=== PATIENT | male | born 1945 | race Caucasian/White ===

== ENCOUNTER 2018-09-08 20:45 | Outpatient (REF) | payer OTHER, SELFPAY ==
[2018-09-08 22:15] LABS: Abs Immature Grans 0.05 k/cumm (0.0-0.09); Absolute Basophil Count 0.05 k/cumm (0.0-0.2); Absolute Eosinophil Count 0.18 k/cumm (0.0-0.7); Absolute Lymphocyte Count 1.16 k/cumm (1.2-3.4); Absolute Monocyte Count 0.93 k/cumm (0.11-0.7); Absolute Neutrophil Count 5.03 k/cumm (1.2-6.7); Basophils % 0.7; Eosinophils % 2.4; HCT 42.5 % (40.0-50.0); Immature Grans % 0.7; Lymphocytes % 15.7; Mean Corp. HGB Concentration 32.9 g/dL (32.0-36.0); Mean Corpuscular Hemoglobin 30.4 pg (27.0-33.0); Mean Corpuscular Volume 92.4 fL (80-95); Mean Platelet Volume 10.5 fL (8.0-11.0); Monocytes % 12.6; Neutrophils % 67.9; Platelet Count 299 x1000/uL (130-400); RBC Distribution Width 12.9 % (11.8-14.1)
[2018-09-08 22:30] LABS: BUN 15 mg/dL (7-18); CREATININE 1.01 mg/dL (0.70-1.30)
== END 2018-09-08 21:05 ==
LOC: LBN 20:45
PROVIDERS: PCP Student in an Organized Health Care Education/Training Program; Visit Provider Internal Medicine Infectious Disease
DX: J47.0 Bronchiectasis with acute lower respiratory infection (principal)
CPT/HCPCS: 84520; 82565; 85025

== ENCOUNTER 2018-09-19 21:15 | Outpatient (REF) | payer OTHER, SELFPAY ==
[2018-09-19 22:02] LABS: Abs Immature Grans 0.02 k/cumm (0.0-0.09); Absolute Basophil Count 0.02 k/cumm (0.0-0.2); Absolute Eosinophil Count 0.25 k/cumm (0.0-0.7); Absolute Lymphocyte Count 1.12 k/cumm (1.2-3.4); Absolute Neutrophil Count 6.83 k/cumm (1.2-6.7); Basophils % 0.2; Eosinophils % 2.7; HCT 41.3 % (40.0-50.0); HGB 13.7 g/dL (13.5-17.5); Immature Grans % 0.2; Lymphocytes % 12.3; Mean Corp. HGB Concentration 33.2 g/dL (32.0-36.0); Mean Corpuscular Hemoglobin 30.4 pg (27.0-33.0); Mean Corpuscular Volume 91.8 fL (80-95); Mean Platelet Volume 10.6 fL (8.0-11.0); Monocytes % 9.8; Neutrophils % 74.8; Platelet Count 286 x1000/uL (130-400); RBC Distribution Width 12.5 % (11.8-14.1); White Blood Cell Count 9.14 k/cumm (4.4-10.8)
[2018-09-19 22:19] LABS: Anion Gap 7.8 mmol/L (3-11); BUN 15 mg/dL (7-18); CO2 29.2 mmol/L (21.0-32.0); Calcium 9.3 mg/dL (8.5-10.1); Chloride 101 mmol/L (98-107); Glucose 95 mg/dL (70-100); Potassium 5.7 mmol/L (3.5-5.1); Sodium 138 mmol/L (136-145)
[2018-09-22 16:34] LABS: Amikacin, Trough <0.8 mcg/mL (<8.0)
== END 2018-09-19 21:35 ==
LOC: LBN 21:15
PROVIDERS: PCP Student in an Organized Health Care Education/Training Program; Visit Provider Internal Medicine Infectious Disease
DX: J47.0 Bronchiectasis with acute lower respiratory infection (principal); A31.0 Pulmonary mycobacterial infection
CPT/HCPCS: 80048; 80150; 85025

== ENCOUNTER 2018-09-22 11:20 | Outpatient (REF) | payer OTHER, SELFPAY ==
[2018-09-22 12:22] LABS: Abs Immature Grans 0.04 k/cumm (0.0-0.09); Absolute Basophil Count 0.04 k/cumm (0.0-0.2); Absolute Eosinophil Count 0.21 k/cumm (0.0-0.7); Absolute Lymphocyte Count 0.99 k/cumm (1.2-3.4); Absolute Monocyte Count 0.56 k/cumm (0.11-0.7); Absolute Neutrophil Count 5.89 k/cumm (1.2-6.7); Basophils % 0.5; Eosinophils % 2.7; HCT 40.8 % (40.0-50.0); HGB 13.7 g/dL (13.5-17.5); Immature Grans % 0.5; Lymphocytes % 12.8; Mean Corp. HGB Concentration 33.6 g/dL (32.0-36.0); Mean Corpuscular Hemoglobin 30.6 pg (27.0-33.0); Mean Corpuscular Volume 91.3 fL (80-95); Mean Platelet Volume 10.3 fL (8.0-11.0); Monocytes % 7.2; Neutrophils % 76.3; Platelet Count 251 x1000/uL (130-400); RBC 4.47 m/cumm (4.50-6.00); RBC Distribution Width 12.4 % (11.8-14.1); White Blood Cell Count 7.73 k/cumm (4.4-10.8)
[2018-09-22 12:42] LABS: BUN 7 mg/dL (7-18); CREATININE 1.14 mg/dL (0.70-1.30)
[2018-09-23 15:11] LABS: Amikacin, Trough <0.8 mcg/mL (<8.0)
== END 2018-09-22 11:40 ==
LOC: LBN 11:20
PROVIDERS: PCP Student in an Organized Health Care Education/Training Program; Visit Provider Internal Medicine Infectious Disease
DX: J47.0 Bronchiectasis with acute lower respiratory infection (principal); A31.0 Pulmonary mycobacterial infection
CPT/HCPCS: 80150; 84520; 82565; 85025

== ENCOUNTER 2018-09-29 10:09 | Outpatient (REF) | payer OTHER, SELFPAY ==
[2018-09-29 11:16] LABS: Abs Immature Grans 0.04 k/cumm (0.0-0.09); Absolute Basophil Count 0.05 k/cumm (0.0-0.2); Absolute Eosinophil Count 0.23 k/cumm (0.0-0.7); Absolute Lymphocyte Count 1.39 k/cumm (1.2-3.4); Absolute Monocyte Count 0.92 k/cumm (0.11-0.7); Basophils % 0.6; Eosinophils % 2.7; HCT 41.1 % (40.0-50.0); HGB 13.7 g/dL (13.5-17.5); Immature Grans % 0.5; Lymphocytes % 16.3; Mean Corp. HGB Concentration 33.3 g/dL (32.0-36.0); Mean Corpuscular Hemoglobin 30.2 pg (27.0-33.0); Mean Corpuscular Volume 90.7 fL (80-95); Monocytes % 10.8; Neutrophils % 69.1; Platelet Count 256 x1000/uL (130-400); RBC 4.53 m/cumm (4.50-6.00); RBC Distribution Width 12.4 % (11.8-14.1); White Blood Cell Count 8.53 k/cumm (4.4-10.8)
[2018-09-29 11:18] LABS: BUN 10 mg/dL (7-18); CREATININE 1.01 mg/dL (0.70-1.30)
== END 2018-09-29 10:29 ==
LOC: LBN 10:09
PROVIDERS: PCP Student in an Organized Health Care Education/Training Program; Visit Provider Internal Medicine Infectious Disease
DX: A31.0 Pulmonary mycobacterial infection (principal)
CPT/HCPCS: 84520; 82565; 85025

== ENCOUNTER 2018-10-06 22:23 | Outpatient (REF) | payer OTHER, SELFPAY ==
[2018-10-06 21:57] LABS: Abs Immature Grans 0.03 k/cumm (0.0-0.09); Absolute Basophil Count 0.04 k/cumm (0.0-0.2); Absolute Lymphocyte Count 1.68 k/cumm (1.2-3.4); Absolute Monocyte Count 0.93 k/cumm (0.11-0.7); Absolute Neutrophil Count 5.56 k/cumm (1.2-6.7); Basophils % 0.5; Eosinophils % 3.5; HCT 41.3 % (40.0-50.0); HGB 13.6 g/dL (13.5-17.5); Immature Grans % 0.4; Lymphocytes % 19.7; Mean Corp. HGB Concentration 32.9 g/dL (32.0-36.0); Mean Corpuscular Hemoglobin 29.8 pg (27.0-33.0); Mean Corpuscular Volume 90.4 fL (80-95); Mean Platelet Volume 10.4 fL (8.0-11.0); Monocytes % 10.9; Platelet Count 270 x1000/uL (130-400); RBC 4.57 m/cumm (4.50-6.00); RBC Distribution Width 12.3 % (11.8-14.1); White Blood Cell Count 8.54 k/cumm (4.4-10.8)
[2018-10-06 22:13] LABS: BUN 15 mg/dL (7-18); CREATININE 1.16 mg/dL (0.70-1.30)
== END 2018-10-06 22:43 ==
LOC: LBN 22:23
PROVIDERS: PCP Student in an Organized Health Care Education/Training Program; Visit Provider Internal Medicine Infectious Disease
DX: J47.0 Bronchiectasis with acute lower respiratory infection (principal); A31.0 Pulmonary mycobacterial infection
CPT/HCPCS: 84520; 82565; 85025

== ENCOUNTER 2018-10-20 22:26 | Outpatient (REF) | payer OTHER, SELFPAY ==
[2018-10-20 22:36] LABS: Abs Immature Grans 0.02 k/cumm (0.0-0.09); Absolute Basophil Count 0.04 k/cumm (0.0-0.2); Absolute Eosinophil Count 0.28 k/cumm (0.0-0.7); Absolute Lymphocyte Count 1.21 k/cumm (1.2-3.4); Absolute Neutrophil Count 5.99 k/cumm (1.2-6.7); Basophils % 0.5; Eosinophils % 3.4; HCT 41.5 % (40.0-50.0); HGB 13.6 g/dL (13.5-17.5); Immature Grans % 0.2; Lymphocytes % 14.5; Mean Corp. HGB Concentration 32.8 g/dL (32.0-36.0); Mean Corpuscular Hemoglobin 29.8 pg (27.0-33.0); Mean Platelet Volume 10.4 fL (8.0-11.0); Monocytes % 9.6; Neutrophils % 71.8; Platelet Count 280 x1000/uL (130-400); RBC 4.56 m/cumm (4.50-6.00); RBC Distribution Width 12.7 % (11.8-14.1); White Blood Cell Count 8.34 k/cumm (4.4-10.8)
[2018-10-20 23:14] LABS: BUN 13 mg/dL (7-18); CREATININE 1.32 mg/dL (0.70-1.30); Estimated GFR 53.17 (mL/min/1.73m2)
[2018-10-22 17:24] LABS: Amikacin, Peak 12.9 mcg/mL
== END 2018-10-20 22:46 ==
LOC: LBN 22:26
PROVIDERS: PCP Student in an Organized Health Care Education/Training Program; Visit Provider Internal Medicine Infectious Disease
DX: J47.0 Bronchiectasis with acute lower respiratory infection (principal); A36 Diphtheria
CPT/HCPCS: 80150; 84520; 82565; 85025

== ENCOUNTER 2018-10-27 13:32 | Outpatient (REF) | payer OTHER, SELFPAY ==
[2018-10-27 13:56] LABS: Abs Immature Grans 0.02 k/cumm (0.0-0.09); Absolute Basophil Count 0.02 k/cumm (0.0-0.2); Absolute Eosinophil Count 0.17 k/cumm (0.0-0.7); Absolute Lymphocyte Count 1.02 k/cumm (1.2-3.4); Absolute Neutrophil Count 5.19 k/cumm (1.2-6.7); Basophils % 0.3; Eosinophils % 2.5; HCT 39.6 % (40.0-50.0); HGB 13.2 g/dL (13.5-17.5); Immature Grans % 0.3; Mean Corp. HGB Concentration 33.3 g/dL (32.0-36.0); Mean Corpuscular Hemoglobin 30.1 pg (27.0-33.0); Mean Corpuscular Volume 90.4 fL (80-95); Mean Platelet Volume 10.3 fL (8.0-11.0); Monocytes % 5.9; Platelet Count 277 x1000/uL (130-400); RBC 4.38 m/cumm (4.50-6.00); RBC Distribution Width 12.6 % (11.8-14.1); White Blood Cell Count 6.82 k/cumm (4.4-10.8)
[2018-10-27 15:02] LABS: BUN 17 mg/dL (7-18); CREATININE 1.25 mg/dL (0.70-1.30); Estimated GFR 56.62 (mL/min/1.73m2)
== END 2018-10-27 13:52 ==
LOC: LBN 13:32
PROVIDERS: PCP Student in an Organized Health Care Education/Training Program; Visit Provider Internal Medicine Infectious Disease
DX: A31.0 Pulmonary mycobacterial infection (principal); J47.0 Bronchiectasis with acute lower respiratory infection
CPT/HCPCS: 84520; 82565; 85025

== ENCOUNTER 2018-11-03 21:50 | Outpatient (REF) | payer OTHER, SELFPAY ==
[2018-11-03 21:41] LABS: Abs Immature Grans 0.02 k/cumm (0.0-0.09); Absolute Basophil Count 0.04 k/cumm (0.0-0.2); Absolute Lymphocyte Count 1.07 k/cumm (1.2-3.4); Absolute Monocyte Count 0.82 k/cumm (0.11-0.7); Absolute Neutrophil Count 6.33 k/cumm (1.2-6.7); Basophils % 0.5; Eosinophils % 2.4; HCT 38.7 % (40.0-50.0); HGB 12.8 g/dL (13.5-17.5); Immature Grans % 0.2; Lymphocytes % 12.6; Mean Corp. HGB Concentration 33.1 g/dL (32.0-36.0); Mean Corpuscular Hemoglobin 30.2 pg (27.0-33.0); Mean Corpuscular Volume 91.3 fL (80-95); Mean Platelet Volume 10.7 fL (8.0-11.0); Monocytes % 9.7; Neutrophils % 74.6; Platelet Count 286 x1000/uL (130-400); RBC 4.24 m/cumm (4.50-6.00); RBC Distribution Width 12.8 % (11.8-14.1); White Blood Cell Count 8.48 k/cumm (4.4-10.8)
[2018-11-03 21:50] LABS: BUN 11 mg/dL (7-18); CREATININE 1.03 mg/dL (0.70-1.30)
== END 2018-11-03 22:10 ==
LOC: LBN 21:50
PROVIDERS: PCP Student in an Organized Health Care Education/Training Program; Visit Provider Internal Medicine Infectious Disease
DX: J47.0 Bronchiectasis with acute lower respiratory infection (principal); A31.0 Pulmonary mycobacterial infection
CPT/HCPCS: 84520; 82565; 85025

== ENCOUNTER 2018-11-11 17:00 | Outpatient (REF) | payer OTHER, SELFPAY ==
[2018-11-11 17:13] LABS: BUN 15 mg/dL (7-18)
[2018-11-11 17:14] LABS: Abs Immature Grans 0.04 k/cumm (0.0-0.09); Absolute Basophil Count 0.04 k/cumm (0.0-0.2); Absolute Lymphocyte Count 0.97 k/cumm (1.2-3.4); Absolute Monocyte Count 0.67 k/cumm (0.11-0.7); Absolute Neutrophil Count 5.01 k/cumm (1.2-6.7); Basophils % 0.6; Eosinophils % 2.9; HCT 38.3 % (40.0-50.0); HGB 12.6 g/dL (13.5-17.5); Immature Grans % 0.6; Mean Corp. HGB Concentration 32.9 g/dL (32.0-36.0); Mean Corpuscular Hemoglobin 30.1 pg (27.0-33.0); Mean Corpuscular Volume 91.4 fL (80-95); Monocytes % 9.7; Neutrophils % 72.2; Platelet Count 275 x1000/uL (130-400); RBC 4.19 m/cumm (4.50-6.00); RBC Distribution Width 12.8 % (11.8-14.1); White Blood Cell Count 6.93 k/cumm (4.4-10.8)
== END 2018-11-11 17:20 ==
LOC: LBN 17:00
PROVIDERS: PCP Student in an Organized Health Care Education/Training Program; Visit Provider Internal Medicine Infectious Disease
DX: A31.0 Pulmonary mycobacterial infection (principal); Z79.2 Long term (current) use of antibiotics
CPT/HCPCS: 84520; 82565; 85025

== ENCOUNTER 2021-09-22 17:23 | Outpatient (REF) | payer OTHER, SELFPAY ==
[2021-09-22 17:56] LABS: HCT 31.9 % (40.0-50.0); MCH 27.9 pg (27.0-33.0); MCHC 31.3 % (32.0-36.0); MCV 89 fL (80-95); MPV 9.9 fL (8.0-11.0); Platelet Count 337 10^3/uL (130-400); RBC 3.59 10^6/uL (4.36-5.78); RDW 16.3 % (11.8-14.1); RDW-SD 53.4 fL; WBC 11.11 10^3/uL (4.4-10.8)
[2021-09-22 18:10] LABS: ALT 23 U/L (16-63); AST 18 U/L (15-37); Albumin 3.1 g/dL (3.4-5.0); Alkaline Phosphatase 91 U/L (46-116); BUN 12 mg/dL (7-18); Bilirubin, Direct 0.1 mg/dL (0.0-0.2); Bilirubin, Total 0.2 mg/dL (0.2-1.0); CREATININE 1.3 mg/dL (0.70-1.30); Calcium 8.6 mg/dL (8.5-10.1); Chloride 101 mmol/L (98-107); Estimated GFR 53.67 (mL/min/1.73m2); Glucose 95 mg/dL (74-106); Potassium 4.1 mmol/L (3.5-5.1); Sodium 139 mmol/L (136-145); Total Protein 7.2 g/dL (6.4-8.2)
[2021-09-23 22:17] LABS: Tobramycin Trough <0.4 ug/mL (<1.5); Type of Draw Not Given
== END 2021-09-22 17:24 | disposition home or self-care (01) ==
LOC: LBN 17:23
PROVIDERS: PCP Student in an Organized Health Care Education/Training Program; Visit Provider Student in an Organized Health Care Education/Training Program
DX: A31.8 Other mycobacterial infections (principal); Z79.2 Long term (current) use of antibiotics
CPT/HCPCS: 80048; 80053; 80076; 85027; 80200; 83880; 85025

== ENCOUNTER 2021-09-24 16:44 | Outpatient (REF) | payer OTHER, SELFPAY ==
[2021-09-24 16:26] LABS: Abs Immature Grans 0.04 10^3/uL (0.0-0.06); Absolute Basophil Count 0.05 10^3/uL (0.0-0.2); Absolute Eosinophil Count 0.38 10^3/uL (0.0-0.7); Absolute Lymphocyte Count 1.74 10^3/uL (1.2-3.4); Absolute Monocyte Count 0.99 10^3/uL (0.1-0.8); Absolute Neutrophil Count 7.23 10^3/uL (1.2-6.7); Basophils % 0.5; Eosinophils % 3.6; HCT 31.3 % (40.0-50.0); HGB 9.7 g/dL (13.5-17.5); Immature Grans % 0.4; Lymphocytes % 16.7; MCH 27.6 pg (27.0-33.0); MCV 89 fL (80-95); MPV 9.8 fL (8.0-11.0); Monocytes % 9.5; Neutrophils % 69.3; Platelet Count 339 10^3/uL (130-400); RBC 3.51 10^6/uL (4.36-5.78); RDW 16.2 % (11.8-14.1); RDW-SD 52.9 fL; WBC 10.43 10^3/uL (4.4-10.8)
[2021-09-24 16:36] LABS: ALT 23 U/L (16-63); AST 23 U/L (15-37); Albumin 3.4 g/dL (3.4-5.0); Alkaline Phosphatase 92 U/L (46-116); Anion Gap 5.6 mmol/L (3-11); BUN 15 mg/dL (7-18); Bilirubin, Total 0.3 mg/dL (0.2-1.0); CO2 31.4 mmol/L (21.0-32.0); CREATININE 1.4 mg/dL (0.70-1.30); Calcium 8.3 mg/dL (8.5-10.1); Calculated LDL 106 mg/dL (<100); Chloride 100 mmol/L (98-107); Cholesterol 181 mg/dL (<200); Estimated GFR 49.27 (mL/min/1.73m2); Glucose 94 mg/dL (74-106); HDL Cholesterol 50 mg/dL (40-60); Potassium 4.4 mmol/L (3.5-5.1); Sodium 137 mmol/L (136-145); Total Protein 7.4 g/dL (6.4-8.2); Triglyceride 126 mg/dL (<150)
[2021-09-25 17:32] LABS: Tobramycin Trough 0.5 ug/mL (<1.5); Type of Draw Not Given
== END 2021-09-24 16:45 | disposition home or self-care (01) ==
LOC: LBN 16:44
PROVIDERS: PCP Student in an Organized Health Care Education/Training Program; Visit Provider Student in an Organized Health Care Education/Training Program
DX: A31.9 Mycobacterial infection, unspecified (principal); K51.90 Ulcerative colitis, unspecified, without complications
CPT/HCPCS: 80053; 80061; 80200; 85025

== ENCOUNTER 2021-10-02 16:19 | Outpatient (REF) | payer OTHER, SELFPAY ==
[2021-10-02 17:11] LABS: HCT 32.1 % (40.0-50.0); HGB 10.1 g/dL (13.5-17.5); MCH 27.8 pg (27.0-33.0); MCHC 31.5 % (32.0-36.0); MCV 88 fL (80-95); MPV 9.5 fL (8.0-11.0); Platelet Count 391 10^3/uL (130-400); RBC 3.63 10^6/uL (4.36-5.78); RDW 16.7 % (11.8-14.1); RDW-SD 53.7 fL; WBC 17.04 10^3/uL (4.4-10.8)
[2021-10-02 17:34] LABS: ALT 33 U/L (16-63); AST 20 U/L (15-37); Albumin 3.2 g/dL (3.4-5.0); Alkaline Phosphatase 79 U/L (46-116); BUN 31 mg/dL (7-18); Bilirubin, Direct 0.1 mg/dL (0.0-0.2); Bilirubin, Total 0.2 mg/dL (0.2-1.0); CREATININE 1.4 mg/dL (0.70-1.30); Calcium 8.7 mg/dL (8.5-10.1); Chloride 100 mmol/L (98-107); Estimated GFR 49.27 (mL/min/1.73m2); Glucose 99 mg/dL (74-106); Potassium 4.7 mmol/L (3.5-5.1); Sodium 137 mmol/L (136-145); Total Protein 7.4 g/dL (6.4-8.2)
[2021-10-03 16:50] LABS: Tobramycin, Random 0.5 ug/mL (See Note)
== END 2021-10-02 16:20 | disposition home or self-care (01) ==
LOC: LBN 16:19
PROVIDERS: PCP Student in an Organized Health Care Education/Training Program; Visit Provider Student in an Organized Health Care Education/Training Program
DX: A31.0 Pulmonary mycobacterial infection (principal); Z79.899 Other long term (current) drug therapy
CPT/HCPCS: 80053; 80076; 85027; 80200; 82248

== ENCOUNTER 2021-10-10 19:24 | Outpatient (REF) | payer OTHER, SELFPAY ==
[2021-10-10 19:56] LABS: HCT 32.6 % (40.0-50.0); HGB 10.3 g/dL (13.5-17.5); MCH 28.3 pg (27.0-33.0); MCHC 31.6 % (32.0-36.0); MCV 90 fL (80-95); MPV 9.9 fL (8.0-11.0); Platelet Count 423 10^3/uL (130-400); RBC 3.64 10^6/uL (4.36-5.78); RDW 16.7 % (11.8-14.1); RDW-SD 54.4 fL; WBC 16.95 10^3/uL (4.4-10.8)
[2021-10-10 20:33] LABS: ALT 20 U/L (16-63); AST 17 U/L (15-37); Albumin 3.2 g/dL (3.4-5.0); Alkaline Phosphatase 83 U/L (46-116); Anion Gap 7.3 mmol/L (3-11); BUN 18 mg/dL (7-18); Bilirubin, Total 0.2 mg/dL (0.2-1.0); CO2 27.7 mmol/L (21.0-32.0); CREATININE 1.4 mg/dL (0.70-1.30); Calcium 8.5 mg/dL (8.5-10.1); Chloride 99 mmol/L (98-107); Estimated GFR 49.27 (mL/min/1.73m2); Glucose 96 mg/dL (74-106); Potassium 4.8 mmol/L (3.5-5.1); Sodium 134 mmol/L (136-145); Total Protein 7.1 g/dL (6.4-8.2)
[2021-10-11 18:05] LABS: Tobramycin Trough 0.5 ug/mL (<1.5); Type of Draw Not Given
== END 2021-10-10 19:25 | disposition home or self-care (01) ==
LOC: LBN 19:24
PROVIDERS: PCP Student in an Organized Health Care Education/Training Program; Visit Provider Student in an Organized Health Care Education/Training Program
DX: A31.0 Pulmonary mycobacterial infection (principal); Z79.899 Other long term (current) drug therapy
CPT/HCPCS: 80053; 85027; 80200

== ENCOUNTER 2021-10-18 21:59 | Outpatient (REF) | payer OTHER, SELFPAY ==
[2021-10-18 22:23] LABS: HCT 29.9 % (40.0-50.0); HGB 9.4 g/dL (13.5-17.5); MCH 28.1 pg (27.0-33.0); MCHC 31.4 % (32.0-36.0); MCV 89 fL (80-95); MPV 10.4 fL (8.0-11.0); Platelet Count 294 10^3/uL (130-400); RBC 3.35 10^6/uL (4.36-5.78); RDW 15.9 % (11.8-14.1); RDW-SD 52.5 fL; WBC 9.46 10^3/uL (4.4-10.8)
[2021-10-18 23:00] LABS: ALT 17 U/L (16-63); AST 16 U/L (15-37); Albumin 3.1 g/dL (3.4-5.0); Alkaline Phosphatase 80 U/L (46-116); Anion Gap 8.7 mmol/L (3-11); BUN 18 mg/dL (7-18); Bilirubin, Direct 0.1 mg/dL (0.0-0.2); Bilirubin, Total 0.2 mg/dL (0.2-1.0); CO2 30.3 mmol/L (21.0-32.0); Calcium 8.4 mg/dL (8.5-10.1); Chloride 101 mmol/L (98-107); Estimated GFR 32.65 (mL/min/1.73m2); Glucose 142 mg/dL (74-106); Sodium 140 mmol/L (136-145)
[2021-10-19 18:24] LABS: Tobramycin Trough 0.9 ug/mL (<1.5); Type of Draw Not Given
== END 2021-10-18 22:00 | disposition home or self-care (01) ==
LOC: LBN 21:59
PROVIDERS: PCP Student in an Organized Health Care Education/Training Program
DX: A31.0 Pulmonary mycobacterial infection (principal); Z79.2 Long term (current) use of antibiotics; Z51.81 Encounter for therapeutic drug level monitoring
CPT/HCPCS: 80053; 80076; 85027; 80200

== ENCOUNTER 2021-10-24 17:30 | Outpatient (REF) | payer OTHER, SELFPAY ==
[2021-10-24 20:18] LABS: HCT 30.8 % (40.0-50.0); HGB 9.4 g/dL (13.5-17.5); MCH 27.4 pg (27.0-33.0); MCHC 30.5 % (32.0-36.0); MCV 90 fL (80-95); MPV 9.9 fL (8.0-11.0); Platelet Count 334 10^3/uL (130-400); RBC 3.43 10^6/uL (4.36-5.78); RDW 15.2 % (11.8-14.1); RDW-SD 49.8 fL; WBC 10.98 10^3/uL (4.4-10.8)
[2021-10-24 20:29] LABS: ALT 20 U/L (16-63); AST 17 U/L (15-37); Albumin 3.2 g/dL (3.4-5.0); Alkaline Phosphatase 81 U/L (46-116); Anion Gap 7.2 mmol/L (3-11); BUN 18 mg/dL (7-18); Bilirubin, Direct 0.1 mg/dL (0.0-0.2); Bilirubin, Total 0.1 mg/dL (0.2-1.0); CO2 30.8 mmol/L (21.0-32.0); CREATININE 1.9 mg/dL (0.70-1.30); Calcium 8.3 mg/dL (8.5-10.1); Chloride 100 mmol/L (98-107); Estimated GFR 34.64 (mL/min/1.73m2); Glucose 86 mg/dL (74-106); Potassium 4.9 mmol/L (3.5-5.1); Sodium 138 mmol/L (136-145); Total Protein 7.5 g/dL (6.4-8.2)
[2021-10-25 17:07] LABS: Tobramycin, Random 1.1 ug/mL (See Note)
== END 2021-10-24 17:31 | disposition home or self-care (01) ==
LOC: LBN 17:30
PROVIDERS: PCP Student in an Organized Health Care Education/Training Program; Visit Provider Student in an Organized Health Care Education/Training Program
DX: A31.0 Pulmonary mycobacterial infection (principal); Z51.81 Encounter for therapeutic drug level monitoring; Z79.899 Other long term (current) drug therapy
CPT/HCPCS: 80053; 80076; 85027; 80200